=== PATIENT | male | born 1990 | race Caucasian/White ===

== ENCOUNTER → 2017-05-31 | Outpatient (CLI) | payer OTHER | LOC: M RAD 09:05 | DX: R93.7 Abnormal findings on diagnostic imaging of other parts of musculoskeletal system (principal) | CPT/HCPCS: 72072 ==

== ENCOUNTER → 2017-10-22 | Outpatient (CLI) | payer OTHER | LOC: M RAD 09:19 | DX: M54.2 Cervicalgia (principal); M54.5 Low back pain | CPT/HCPCS: 72052 ==

== ENCOUNTER 2018-09-30 18:43 | Emergency (ER) | payer OTHER ==
[~2018-09-30] VITALS: Ht 165.1 cm; Wt 70.5 kg
[2018-09-30] MEDS ORDERED: LISI10TA4 PO (18:54)
[2018-09-30 19:01] VITALS: BP 142/93
[2018-09-30] MEDS ORDERED: LIDOCAINE 2% MDV 20 ML VIAL SC ONE (19:45)
[2018-09-30] MEDS ORDERED: IBUPROFEN 800 MG TAB PO ONE (19:45)
--- NOTE | 2018-09-30 20:07 | REP ---
Clinical: Trauma/injury . Comparison: None . Findings: The ventricles, sulci, and cisterns are normal in position and appearance. Valente-white differentiation is maintained. No acute intracranial hemorrhage, mass/mass effect, pathology or trauma/injury. No evidence for acute infarction. No extra-axial fluid collection. Calvarium is intact. Paranasal sinuses and mastoid air cells are clear. Mild traumatic scalp swelling overlies the right supraorbital and right temporal region. Impression: Normal noncontrast head CT. No evidence for acute intracranial pathology or trauma/injury. Electronically Signed by Ish Hazel MD 09/30/2018 07:58 P
[2018-09-30] MEDS ORDERED: NEOSPORIN OINT 0.9 GM PKT (FLOOR STOCK) As Ordered ONE (20:43)
[2018-09-30] MEDS ORDERED: NEOSPORIN OINT 0.9 GM PKT (FLOOR STOCK) TOP ONE (21:00)
== END 2018-09-30 20:57 | disposition home or self-care (01) ==
LOC: M ED 18:43
DX: S01.111A Laceration without foreign body of right eyelid and periocular area, initial encounter (principal); W10.8XXA Fall (on) (from) other stairs and steps, initial encounter; Y92.148 Other place in prison as the place of occurrence of the external cause; I10 Essential (primary) hypertension; Q87.0 Congenital malformation syndromes predominantly affecting facial appearance; Z79.899 Other long term (current) drug therapy; Z88.0 Allergy status to penicillin; F17.210 Nicotine dependence, cigarettes, uncomplicated

== ENCOUNTER → 2018-10-01 | Outpatient (CLI) | payer OTHER ==
[~2018-10-01] MED LIST: LISI10TA4 PO
--- NOTE | 2018-10-01 10:44 | REP ---
THORACIC SPINE, THREE VIEWS: HISTORY: Upper back pain. COMPARISON: 05/31/2017 There is no acute fracture or subluxation. There is minimal loss of height at the T8 and T9 vertebral bodies unchanged compared to the previous study. The intravertebral discs are normal in height. IMPRESSION: There is no acute fracture or subluxation. Electronically Signed by Aron Greenberg MD 10/01/2018 10:45 A
== END ==
LOC: M RAD 08:58
PROVIDERS: ATTEND Surgery
DX: M25.511 Pain in right shoulder (principal); M54.89 Other dorsalgia